=== PATIENT | male | born 1950 | race Caucasian/White ===

== ENCOUNTER 2021-12-28 02:02 | Inpatient (IN) ==
[2021-12-28] MEDS ORDERED: Naloxone 0.4 MG/ML INJ IVP PRN (05:21)
[2021-12-28] MEDS ORDERED: Acetaminophen 325 MG TABLET PO PRN (05:21)
[2021-12-28] MEDS ORDERED: *HR* HYDROcodone/Acet 5/325 mg TABLET PO PRN (05:21)
[2021-12-28] MEDS ORDERED: Ondansetron 4 MG/2 ML VIAL IVP PRN (05:21)
[2021-12-28] MEDS ORDERED: Melatonin 3 MG TABLET PO PRN (05:21)
[2021-12-28] MEDS ORDERED: Perflutren Lipid Microsphere 1.3 ML in 0.9 % Sodium Chloride 8.7 ML IVP PRN (05:25)
[2021-12-28] MEDS ORDERED: *HR* Heparin 5,000 UNIT/ML VIAL IVP PRN ×2 (05:37)
[2021-12-28] MEDS ORDERED: Ipratropium/Albuterol Neb 3 ML IH PRN (05:38)
[2021-12-28] MEDS ORDERED: methylPREDNISolone 125 MG/2 ML VIAL IVP ONE (05:39)
[2021-12-28] MEDS: Heparin 25,000UNIT/250ML 1/2NS 25,000 UNIT/250 ML IV.SOLN IVC SCH (06:21)
[2021-12-28 06:37] LABS: Basophils # 0.1 K/mcL (0.0-0.2); Basophils % 0.4 %; Eosinophils % 0.1 %; Hematocrit 41.4 % (37.5-50.1); Hemoglobin 12.4 g/dL (12.9-16.9); Immature Granulocytes % 0.4 % (0-4); Lymphocytes # 2.1 K/mcL (0.6-4.6); Lymphocytes % 17.7 %; Mean Corpuscular Hemoglobin 24.5 pg (28.0-33.3); Mean Corpuscular Volume 81.8 fL (83.0-100.0); Mean Platelet Volume 12.7 fL (9.4-12.4); Monocytes # 0.6 K/mcL (0.0-1.3); Monocytes % 5.3 %; Neutrophils # 9.1 K/mcL (1.6-8.9); Platelet Count 198 K/mcL (140-400); Red Blood Count 5.06 M/mcL (4.19-5.50); Red Cell Distribution Width 18.2 % (11.5-14.5); Segmented Neutrophils % 76.1 %; White Blood Count 11.9 K/mcL (4.3-11.1)
[2021-12-28 06:44] LABS: Heparin anti-factor XA UFH 0.07 IU/mL (0.30-0.70); INR 1.6; Prothrombin Time 17.4 Seconds (9.4-12.1)
[2021-12-28 06:46] LABS: Activated Partial Thrombo Time 30.2 Seconds (26.0-36.0)
[2021-12-28 06:57] LABS: Albumin 4.1 g/dL (3.5-5.7); Albumin/Globulin Ratio 1.3 (1.1-2.2); Bilirubin,Total 2.1 mg/dL (0.3-1.0); Calcium 9.4 mg/dL (8.6-10.3); Chol/HDL Ratio 4.9 (0-4.9); Globulin 3.1 g/dL (2.4-3.5); Magnesium 2.3 mg/dL (1.6-2.6); Potassium 5.1 mEq/L (3.5-5.1); Total Protein 7.2 g/dL (6.4-8.9)
[2021-12-28] MEDS: Furosemide 40 MG/4 ML VIAL IVP SCH ×2 (07:44→21:03)
[2021-12-28] MEDS: Ipratropium/Albuterol Neb 3 ML IH SCH ×5 (08:02→23:51)
[2021-12-28] MEDS: Metoprolol XL (24 HR) Succ 25 MG TAB.ER.24H PO SCH (10:03)
[2021-12-28] MEDS: MethylPREDNISolone 40 MG/ML VIAL IVP SCH (17:20)
[2021-12-29] MEDS: Heparin 25,000UNIT/250ML 1/2NS 25,000 UNIT/250 ML IV.SOLN IVC SCH (01:54)
[2021-12-29 02:47] LABS: Basophils % 0.1 %; Eosinophils % 0.1 %
[2021-12-29 02:49] LABS: Hematocrit 36.6 % (37.5-50.1); Immature Granulocytes % 0.8 % (0-4); Immature Platelets 14.9 % (1.1-6.1); Lymphocytes # 0.9 K/mcL (0.6-4.6); Lymphocytes % 6.3 %; Mean Corpuscular HGB Conc 30.1 g/dL (31.6-35.5); Mean Corpuscular Hemoglobin 24.2 pg (28.0-33.3); Mean Corpuscular Volume 80.4 fL (83.0-100.0); Monocytes # 0.3 K/mcL (0.0-1.3); Neutrophils # 12.6 K/mcL (1.6-8.9); Nucleated Red Blood Cells 0.1 /100 WBC (0); Platelet Count 162 K/mcL (140-400); Red Blood Count 4.55 M/mcL (4.19-5.50); Red Cell Distribution Width 18.2 % (11.5-14.5); Segmented Neutrophils % 90.7 %; White Blood Count 13.9 K/mcL (4.3-11.1)
[2021-12-29 03:15] LABS: Potassium 4.4 mEq/L (3.5-5.1)
[2021-12-29] MEDS: Ipratropium/Albuterol Neb 3 ML IH SCH ×6 (03:49→23:39)
[2021-12-29] MEDS: MethylPREDNISolone 40 MG/ML VIAL IVP SCH ×2 (05:22→18:49)
[2021-12-29 09:12] LABS: Heparin anti-factor XA UFH 0.81 IU/mL (0.30-0.70)
[2021-12-29] MEDS: Metoprolol XL (24 HR) Succ 25 MG TAB.ER.24H PO SCH (09:13)
[2021-12-29] MEDS: Furosemide 40 MG/4 ML VIAL IVP SCH ×2 (09:13→21:06)
[2021-12-29 09:31] LABS: Activated Partial Thrombo Time 116.6 Seconds (26.0-36.0)
[2021-12-29] MEDS: Albumin 25% 25gram/100mL 25 GM/100 ML IV.SOLN IVPB SCH ×2 (09:46→21:06)
[2021-12-29 13:26] LABS: % Iron Saturation 2 % (20-55); Iron 10 mcg/dL (65-175); Transferrin 396 mg/dL (203-362)
[2021-12-29 13:44] LABS: Ferritin 78 ng/mL (20-250)
[2021-12-29] MEDS: Apixaban 5 MG TABLET PO SCH ×2 (13:46→21:06)
[2021-12-29] MEDS: Azithromycin 500 MG in 0.9 % Sodium Chloride 250 ML IVPB SCH (13:46)
[2021-12-30] MEDS: Ipratropium/Albuterol Neb 3 ML IH SCH ×3 (04:25→11:34)
[2021-12-30] MEDS: MethylPREDNISolone 40 MG/ML VIAL IVP SCH (05:06)
[2021-12-30] MEDS: Metoprolol XL (24 HR) Succ 25 MG TAB.ER.24H PO SCH (09:03)
[2021-12-30] MEDS: Furosemide 40 MG/4 ML VIAL IVP SCH (09:03)
[2021-12-30] MEDS: Apixaban 5 MG TABLET PO SCH (09:03)
[2021-12-30] MEDS: Albumin 25% 25gram/100mL 25 GM/100 ML IV.SOLN IVPB SCH (09:04)
[2021-12-30 10:55] VITALS: BP 132/91; PULSE 96; TEMP 97.8
[2021-12-30 11:43] VITALS: O2SAT 94
[2021-12-30] MEDS: Azithromycin 500 MG in 0.9 % Sodium Chloride 250 ML IVPB SCH (13:35)
== END 2021-12-30 13:30 | disposition home or self-care (01) | DRG 280 ==
LOC: 3NENU → SUATTDRO 05:01
PROVIDERS: ADMIT Internal Medicine; ATTEND Registered Nurse